=== PATIENT | male | born 1965 | race Caucasian/White ===

== ENCOUNTER 2023-12-28 06:56 | Outpatient (RCR) | payer OTHER, SELFPAY | END 2023-12-28 23:59 | disposition home or self-care (01) | LOC: RST 06:56 | PROVIDERS: ATTENDING PHYSICIAN Otolaryngology; FAMILY PHYSICIAN Nurse Practitioner | DX: J38.2 Nodules of vocal cords (principal); R49.0 Dysphonia | CPT/HCPCS: 92507; 92524 ==

== ENCOUNTER 2024-01-14 04:26 | Emergency (ER) | payer OTHER, SELFPAY ==
[2024-01-14 04:34] VITALS: BP 154/104
[2024-01-14 05:10] VITALS: BMI 26.3
--- NOTE | 2024-01-14 06:54 | ED.GENMED ---
History of Present Illness
General
Chief Complaint: Musculo-Skeletal Complaint
Source: patient
Time Seen by Provider: 01/14/24 06:46
Travel History
Have you had any contact with someone who has COVID-19?: No
Do you have any symptoms of coronavirus? Fever > 100 degrees, chills, cough, shortness of breath, sore throat, loss of taste or smell, muscle aches, or headache?: No
History of Present Illness
History of Present Illness:
58-year-old male who accidentally slammed his fourth digit on his left hand in a door in his home prior to presentation. He notes pain at the PIP area of the left ring finger, no other complaints or injury. He denies numbness, tingling, break in
skin, drainage. He does note an area of bruising at the PIP area on the volar aspect.
Past History
Past History
ED Past Medical History: HTN
ED Past Surgical History: Tonsilectomy and Other (Hernia repair)
Social History
Tobacco: Non-smoker
Alcohol: Occasional
Drug: None
Living: with family
Employment: Employed
Phy Exam
Physical Exam
Physical Exam:
GENERAL: Alert , in no apparent distress
EYE: pupils equal and reactive
NECK: Supple, no significant adenopathy.
ENT: o/p clr, mmm.
CARDIAC: Regular rate and rhythm .
LUNGS: Clear breath sounds bilaterally, no acute respiratory distress, no wheezes/rales/rhonchi
NEUROLOGICAL: Alert and oriented, grossly nonfocal, speech clear, no facial droop
SKIN: Warm and dry, skin intact.
MUSCULOSKELETAL: L ring finger with mild swelling and ttp noted L ring finger PIP, FROM, no break in skin/deformity, bruising at PIP on volar aspect. Cap refill wnl, well perfused. No nail inj/DIP joint abnl, exam otherwise snl
PSYCH: Normal and appropriate interaction.
Course
Orders/Labs/Results
Orders:
Orders
01/14/24 04:42
Finger(s)/Thumb 2 View Lt [CR Finger(s)/thumb Min 2 Vw Lt] Urgent
Comment:
Reason For Exam: L 4th finger crush inj with pain
01/14/24 07:03
Aluminium Finger Splint Left ONCE
Vital Signs
Initial and Last Documented VS:
Initial Vital Signs
Temp Pulse Resp BP Pulse Ox
97.7 F 60 16 154/104 99
01/14/24 04:34 01/14/24 04:34 01/14/24 04:34 01/14/24 04:34 01/14/24 04:34
Last Documented Vital Signs
Temp Pulse Resp BP Pulse Ox
97.8 F 58 16 151/98 97
01/14/24 07:10 01/14/24 07:10 01/14/24 07:10 01/14/24 07:10 01/14/24 07:10
*Critical Care Note
Total Time (30-74mins, 75-104mins- exclusive of procedures): Not Applicable
Update Note
Update Note:
Patient presents to the Emergency Department with ____finger injury
Number and Complexity of Problems Addressed at the Encounter
� Chronic conditions affecting care:
� Acute Exacerbation and/or Progression of Chronic Illness:
� Differential Diagnosis includes: But not limited to finger sprain, finger fracture, dislocation, tendon injury, etc.
Amount and/or Complexity of Data to be Reviewed and Analyzed
� I performed an independent evaluation of and my interpretation is:
EKG:
CT:
Xrays: Reviewed by me, no specific abnormality noted, no fracture, no dislocation, however 3 small linear densities noted in the distal aspect of the soft tissue of the finger.
Other:
� Review of other/old records reveals:
� Clinical information was obtained by an independent historian:
� Prescriptions/Medications Considered but not given:
� Further testing considered but not performed:
Risk of Complications and/or Morbidity or Mortality of Patient Management
� Social determinants of health affecting care:
� Discussion with other providers (PCP, Hospitalists, Consultants, etc):
� Escalation of care including admission/observation vs risk of discharge considered: Abnormalities of densities noted in the distal aspect of the finger. Patient does not have any symptoms here, nontender, no skin findings, no
infection or drainage. 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 He does not know specifically what these densities are, however they are not causing him symptoms. He was given a copy of image of his
x-ray and advised close follow-up. Will apply a finger splint for his left PIP contusion. No findings to suggest tendon injury.
ED Attending Note
-
Portions of this chart may have been created with voice recognition software.� Occasional wrong word or��sound alike� substitutions may have occurred due to the inherent limitations of voice recognition software.
Discharge Plan
Departure
Patient Disposition: Home (Routine Discharge)
Date of Disposition: 01/14/24
Time of Disposition: 07:01
Patient with high blood pressure during this ER visit?: Yes
Condition: Good
Discharge Problem:
Contusion of finger, left
Instructions: BLOOD PRESSURE, Contusion
Prescriptions:
No Action
metoprolol succinate 25 mg Tablet Extended Release 24 Hr
25 mg PO DAILY
finasteride [Propecia] 1 mg Tablet
1 mg PO DAILY
Referrals:
Eduardo Aguayo MD [Active] - As needed
Anais Lee CRNP [Family Provider] -
Activity Restrictions/Additional Instructions:
PLEASE SEE ATTACHED XRAY FOR INCIDENTAL FINDINGS OF DENSITIES IN THE FINGERTIP AREA...THIS REQUIRES FOLLOW UP WITH YOUR DOCTOR. IF YOU DEVELOP INCREASING/NEW/PERSISTENT PAIN, DRAINAGE, REDNESS, WARMTH, FEVER, DIFFICULTY MOVING YOUR FINGER, OR OTHER
WORRISOME SIGNS, GO TO THE ER IMMEDIATELY!
Interventions
Interventions:
*Risk Screen - Suicide Last Done: 01/14/24 04:34
*General Assessment Last Done: 01/14/24 04:34
*Neglect/Abuse Screening Last Done: 01/14/24 04:34
ED- Fall Risk Assessment Last Done: 01/14/24 04:34
*ED COVID-19 Vaccine History Last Done: 01/14/24 04:34
*Nursing Disposition Last Done: 01/14/24 07:20
ED-Musculoskeletal Assessment Last Done: 01/14/24 05:10
Discharge Date and Time
Discharge Date/Time: 01/14/24 07:21
Print Language: IRISH
[2024-01-14 07:10] VITALS: BP 151/98
== END 2024-01-14 07:21 | disposition home or self-care (01) ==
LOC: EMR 04:26
PROVIDERS: EMERGENCY PHYSICIAN Emergency Medicine; FAMILY PHYSICIAN Nurse Practitioner
DX: S60.042A Contusion of left ring finger without damage to nail, initial encounter (principal); W23.2XXA Caught, crushed, jammed or pinched between a moving and stationary object, initial encounter; I10 Essential (primary) hypertension
CPT/HCPCS: 99283; 29130; 73140

== ENCOUNTER 2024-01-19 06:59 | Outpatient (RCR) | payer OTHER, SELFPAY | END 2024-01-19 23:59 | disposition home or self-care (01) | LOC: RST 06:59 | PROVIDERS: ATTENDING PHYSICIAN Otolaryngology; FAMILY PHYSICIAN Nurse Practitioner | DX: J38.2 Nodules of vocal cords (principal); R49.0 Dysphonia | CPT/HCPCS: 92507 ==

== ENCOUNTER 2024-02-09 06:42 | Outpatient (RCR) | payer OTHER, SELFPAY | END 2024-02-09 23:59 | disposition home or self-care (01) | LOC: RST 06:42 | PROVIDERS: ATTENDING PHYSICIAN Otolaryngology; FAMILY PHYSICIAN Nurse Practitioner | DX: R49.0 Dysphonia (principal); J38.2 Nodules of vocal cords | CPT/HCPCS: 92507 ==

== ENCOUNTER 2024-03-09 08:20 | Outpatient (RCR) | payer OTHER, SELFPAY | END 2024-03-09 23:59 | disposition home or self-care (01) | LOC: RST 08:20 | PROVIDERS: ATTENDING PHYSICIAN Otolaryngology; FAMILY PHYSICIAN Nurse Practitioner | DX: J38.2 Nodules of vocal cords (principal); R49.0 Dysphonia | CPT/HCPCS: 92507 ==

== ENCOUNTER 2024-04-06 11:46 | Outpatient (RCR) | payer OTHER, SELFPAY | END 2024-04-06 12:38 | disposition home or self-care (01) | LOC: RST 11:46 | PROVIDERS: ATTENDING PHYSICIAN Otolaryngology; FAMILY PHYSICIAN Nurse Practitioner | DX: J38.2 Nodules of vocal cords (principal); R49.0 Dysphonia | CPT/HCPCS: 92507 ==

== ENCOUNTER → 2024-05-30 07:08 | Outpatient (REF) | payer OTHER, SELFPAY | LOC: RAD 07:08 | PROVIDERS: ATTENDING PHYSICIAN Internal Medicine Cardiovascular Disease; FAMILY PHYSICIAN Nurse Practitioner | DX: I77.810 Thoracic aortic ectasia (principal); I10 Essential (primary) hypertension | CPT/HCPCS: 71250 ==

== ENCOUNTER → 2024-07-27 06:53 | Outpatient (REF) | payer OTHER, SELFPAY | LOC: RCS 06:53 | PROVIDERS: ATTENDING PHYSICIAN Internal Medicine Cardiovascular Disease; FAMILY PHYSICIAN Internal Medicine | DX: I71.21 Aneurysm of the ascending aorta, without rupture (principal); I10 Essential (primary) hypertension; R94.31 Abnormal electrocardiogram [ECG] [EKG] | CPT/HCPCS: 93306 ==

== ENCOUNTER → 2024-08-01 17:08 | Outpatient (REF) | payer OTHER, SELFPAY | LOC: RAD 17:08 | PROVIDERS: ATTENDING PHYSICIAN Podiatrist Primary Podiatric Medicine; FAMILY PHYSICIAN Nurse Practitioner | DX: M84.375A Stress fracture, left foot, initial encounter for fracture (principal) | CPT/HCPCS: 73630 ==

== ENCOUNTER → 2025-06-17 10:50 | Outpatient (REF) | payer BC, SELFPAY | LOC: PAVMRI 10:50 | PROVIDERS: ATTENDING PHYSICIAN Internal Medicine Cardiovascular Disease | DX: I71.21 Aneurysm of the ascending aorta, without rupture (principal) | CPT/HCPCS: 71555; A9585 ==